=== PATIENT | male | born 1995 | race Caucasian/White ===

== ENCOUNTER 2023-10-28 11:00 | Outpatient (AMB) | payer OTHER, SELFPAY ==
--- NOTE | 2023-10-28 11:16 | MHC.PC.OV ---
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 Allergies No Known Allergies Allergy (Verified 10/28/23 11:25) Medication List - Last Reconciled 10/28/23 by RAUL Al No Known Home Meds Tobacco use date assessed: 10/28/23 HPI HPI Comments History of Present Illness Details 28 y/o M with scoliosis and multiple sports injuries otherwise healthy Surgical history pilonidal cyst 2011 Hospitalizations: choked on peanut age 3 Family hx: Hx of skin cancer and heart disease 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 Unfortunately he does not have any previous medical records that she relocated here about 10 years ago from [place]. He reports he was only seeing a theatre instructor at that time and this practice has since closed. Be that as it may he feels like he is able to provide a good history. He does have 2 complaints today. The 1st is multiple joint pain. 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 Multiple fractures of several bones. Today the biggest complaint is that of left shoulder pain. Reports it feels weak and fatigued when exercising especially when pushing such as bench pressing. Feels a constant cracking and grinding in the subscapular region. Left hip pain. Also feels grinding and popping when his leg is extended and flexed. It hurts all the time. Finally he has an abnormal appearing left foot. He reports that the area has been there for several years. He wonders if some sort of a calcification from playing soccer. Second he complains of a numb sensation at the tip of his penis. Reports that he is able to achieve an erection however during intercourse only he is unable to achieve ejaculation as he does not feel like there is enough stimulation. This is not occur when he masturbates. He does not have any pain. Reports normal urination. No blood or drainage. Reports he has in a monogamous relationship. This has been going on for years. He is never seen a urologist but is interested in in seeing urologist at this time. [facility] Social History (Updated 10/28/23 @ 14:21 by Anne-Marie Sands CMA) Alcohol intake: current Comment: Beer once a week Patient Tobacco Use Status: Never used Tobacco Female Reproductive History Date of last Bone Density Screenin10/28/23 Questionnaire PHQ-9 Over the last 2 weeks, how often have you been bothered by any of the following problems? 1. Little interest or pleasure in doing things: several days 2. Feeling down, depressed, or hopeless: not at all 3. Trouble falling or staying asleep, or sleeping too much: several days 4. Feeling tired or having little energy: several days 5. Poor appetite or overeating: not at all 6. Feeling bad about yourself - or that you are a failure or have let yourself or your family down: several days 7. Trouble concentrating on things, such as reading the newspaper or watching television: not at all 8. Moving or speaking so slowly that other people could have noticed. Or the opposite - being so fidgety or restless that you have been moving around a lot more than usual: not at all 9. Thoughts that you would be better off or of hurting yourself in some way: not at all Total score: 4 Depression Screening Interpretation: Negative Depression Screening Done: Yes 60618 - PHQ-9 Billing: Yes Source: Developed by Drs. Ant Salvador, Savana Yoo, Dmitry Pelletier and colleagues, with an educational elvin from [employer]. Thrive Questionnaire Date Thrive assessed: 10/28/23 I am a: Parent/Caregiver What is your living situation today?: I have a steady place to live Within the past 12 months, did the food you bought not last and you didn't have the money to get more?: Never true Within the past 12 months, did you worry whether your food would run out before you got money to buy more?: Never true Do you have trouble paying for medicines?: No Do you have trouble getting transportation to medical appointments?: No Do you have trouble paying your heating and electricity bill?: No Do you have trouble taking care of your child, family member or friend?: No Do you have trouble with day-to-day activities such as bathing, preparing meals, shopping, managing finances, etc.?: No Are you currently unemployed and looking for a job?: No Are you interested in more education?: No Please select the resources that you would like help with: None THRIVE Score: 0 AUDIT C Alcohol Use Questionnaire (AUDIT-C) 1. How often do you have a drink containing alcohol?: 2-4 times a month 2. How many drinks containing alcohol do you have on a typical day when you are drinking?: 1 or 2 3. How often do you have six or more drinks on one occasion?: Never Total Score: 2 Score Reviewed/Action Taken: Yes KAREY-7 AMB Questionnaire KAREY-7 Date KAREY - 7 assessed: 10/28/23 Feeling nervous, anxious, or on edge: 0 = Not at all Not being able to stop or control worryin = Not at all Worrying too much about different things: 1 = Several days Trouble relaxin = Several days Being so restless that it is hard to sit still: 0 = Not at all Becoming easily annoyed or irritable: 0 = Not at all Feeling afraid as if something awful might happen: 0 = Not at all Total KAREY-7 score (0-4 normal; 5-9 mild; 10-14 moderate; 15-21 severe): 2 Source: Developed by Drs. Ant Salvador, Savana Yoo, Dmitry Pelletier and colleagues, with an educational elvin from [employer]. KAREY-7 Assessment Billing KAREY-7 Assessment Tool: KAREY-7 Assessment 12191 Review of Systems Const Details: Constitutional: Denies fever. Skin: Denies rash. Eye: Denies eye pain. ENMT: Denies sore throat and nasal congestion. Respiratory: Denies shortness of breath and cough. Gastrointestinal: Denies nausea, vomiting or abdominal pain. Cardiovascular: Denies chest pain and syncope. Genitourinary: Denies dysuria. Musculoskeletal: see above Neurologic: Denies headaches, confusion, and weakness. Psychiatric: Denies suicidal thoughts and substance abuse. Allergy/ Immunologic: Denies impaired immunity. Physical exam (Primary Care) Vital Signs: Last Vital Signs Pulse 97 10/28/23 11:22 BP 104/56 L 10/28/23 11:22 Pulse Ox 97 10/28/23 11:22 Oxygen Delivery Method Room Air 10/28/23 11:22 BMI result Body Mass Index 23.4 Tobacco/Smoking Status: Tobacco use Status Tobacco use date assessed 10/28/23 10/28/23 14:21 Patient Tobacco Use Status Never used Tobacco 10/28/23 14:21 PHQ-9: PHQ-9 Score PHQ-9: Total score 4 10/28/23 14:13 Depression Screening Interpretation: Negative Thrive Assessment: Date of Thrive Assessment Date Thrive assessed 10/28/23 10/28/23 11:32 Const Other: General: Well developed, well nourished, in no acute distress. Appears stated age. Head: Normocephalic, atraumatic. Eyes: Pupils are equal, round and reactive to light and accommodation. Conjunctivae are clear. Vision grossly normal. Ears: TMs clear AU, EACS WNL Nose: Patent, without discharge. Mouth: There are no ulcers or lesions noted. No inflammation, no post nasal drip, no plaques nor exudates. Neck: Supple, no adenopathy or thyromegaly. Lungs: Clear to auscultation bilaterally. No rales, rhonchi or wheeze noted. Good air flow in all pop. Heart: Regular rate and rhythm. No murmurs, click, rubs or gallops are noted. Abdomen: Bowel sounds present in all quadrants. The abdomen is soft, nontender, with no masses or organomegaly noted. No hernias are noted. Musculoskeletal: Full range of motion left hip. Positive crepitus and pain with range of motion all directions passive and active. No obvious deformity. No edema or ecchymosis. Full range of motion left shoulder. Cracking in subscapular area with active and passive range of motion. Normal strength. Left foot with a soft spongy growth on the medial aspect proximal to the medial malleolus. Nontender. All extremities are neurovascularly intact Pulses: Peripheral pulses are equal and palpable bilaterally. Extremities: No clubbing, cyanosis nor edema is noted. Neurologic: Gait and station normal. Cranial Nerves 2-12 intact. Motor strength grossly symmetrical and intact. No sensory loss. Balance normal. Skin: No rashes, ulcers, or lesions noted. Turgor is good. Skin color is good. Hair and nails are without abnormalities. Psych: Normal eye contact, affect and mood appropriate, and normal interactions. Patient is alert and appropriate to context. Assessment and Plan Assessment & Plan (1) Routine physicl lab exam: Code(s): Z00.00 - Encounter for general adult medical examination without abnormal findings (2) Laboratory exam ordered as part of routine general medical examination: Code(s): Z00.00 - Encounter for general adult medical examination without abnormal findings (3) Penile abnormality: Code(s): N48.9 - Disorder of penis, unspecified Plan: Refer to urology for further evaluation and treatment (4) Left hip pain: Code(s): M25.552 - Pain in left hip (5) Left shoulder pain: Code(s): M25.512 - Pain in left shoulder Qualifiers: Chronicity: chronic Qualified Code(s): M25.512 - Pain in left shoulder; G89.29 - Other chronic pain (6) Sports injuries: Code(s): T14.90XA - Injury, unspecified, initial encounter Plan: Refer to [facility] for further evaluation and treatment (7) Left foot pain: Code(s): M79.672 - Pain in left foot Orders: Orders TSH reflex Free T4 Today Z00.00 - Encounter for general adult medical examination without abnormal findings Vitamin D 1,25 dihydroxy Today Z00.00 - Encounter for general adult medical examination without abnormal findings Comprehensive Met. Panel Today Z00.00 - Encounter for general adult medical examination without abnormal findings LDL Cholesterol Direct Today Z00.00 - Encounter for general adult medical examination without abnormal findings CT NG by PCR Today Z00.00 - Encounter for general adult medical examination without abnormal findings Referrals Urology Referral N48.9 - Disorder of penis, unspecified Orthopedics Referral M25.512 - Pain in left shoulder, M25.552 - Pain in left hip, T14.90XA - Injury, unspecified, initial encounter Patient Instructions: Health screenings for men ages 40 to 64 You should visit your health care provider regularly, even if you feel healthy. The purpose of these visits is to: Screen for medical issues Assess your risk for future medical problems Encourage a healthy lifestyle Update vaccinations and other preventive care services Help you get to know your provider in case of an illness Information Even if you feel fine, you should still see your provider for regular checkups. These visits can help you avoid problems in the future. For example, the only way to find out if you have high blood pressure is to have it checked regularly. High blood sugar and high cholesterol level also may not have any symptoms in the early stages. Simple blood tests can check for these conditions. There are specific times when you should see your provider or receive specific health screenings. The [place] Preventive Services Task Force publishes a list of recommended screenings. Below are screening guidelines for men ages 40 to 64. BLOOD PRESSURE SCREENING Have your blood pressure checked at least once every year. Watch for blood pressure screenings in your area. Ask your provider if you can stop in to have your blood pressure checked. Ask your provider if you need your blood pressure checked more often if: You have diabetes, heart disease, kidney problems, or are overweight or have certain other health conditions You have a first-degree relative with high blood pressure You are Black Your blood pressure top number is from 120 to 129 mm Hg, or the bottom number is from 70 to 79 mm Hg If the top number is 130 mm Hg or greater or the bottom number is 80 mm Hg or greater, this is considered stage 1 hypertension. Schedule an appointment with your provider to learn how you can lower your blood pressure. Effects of age on blood pressure CHOLESTEROL SCREENING Cholesterol screening should begin at age 35 for men with no known risk factors for coronary heart disease. Repeat cholesterol screening should take place: Every 5 years for men with normal cholesterol levels More often if changes occur in lifestyle (including weight gain and diet) More often if you have diabetes, heart disease, kidney problems, or certain other conditions COLORECTAL CANCER SCREENING If you are under age 45, talk to your provider about getting screened. You may need to be screened if you have a strong family history of colon cancer or polyps. Screening may also be considered if you have risk factors such as a history of inflammatory bowel disease or polyps. If you are age 45 to 75, you should be screened for colorectal cancer. There are several screening tests available: A stool-based fecal occult blood (gFOBT) or fecal immunochemical test (FIT) every year A stool sDNA test every 1 to 3 years Flexible sigmoidoscopy every 5 years or every 10 years with stool testing FIT done every year CT colonography (virtual colonoscopy) every 5 years Colonoscopy every 10 years You may need a colonoscopy more often if you have risk factors for colorectal cancer, such as: Ulcerative colitis A personal or family history of colorectal cancer A history of growths in your colon called adenomatous polyps DENTAL EXAM Go to the dentist once or twice every year for an exam and cleaning. Your dentist will evaluate if you have a need for more frequent visits. DIABETES SCREENING All adults who do not have risk factors for diabetes should be screened starting at age 35 and repeated every 3 years. If you have other risk factors for diabetes, such as a first degree relative with diabetes, overweight or obesity, high blood pressure, prediabetes, or a history of heart disease, you may be tested more often. If you are overweight and have other risk factors, such as high blood pressure and are planning to become , screening is recommended. EYE EXAM Have an eye exam every 2 to 4 years ages 40 to 54 and every 1 to 3 years ages 55 to 64. Your provider may recommend more frequent eye exams if you have vision problems or glaucoma risk. Have an eye exam that includes an examination of your retina (back of your eye) at least every year if you have diabetes. IMMUNIZATIONS Commonly needed vaccines include: Flu shot: get one every year COVID-19 vaccine: ask your provider what is best for you Tetanus-diphtheria and acellular pertussis (Tdap) vaccine: have as one of your tetanus-diphtheria vaccines if you did not receive it as an adolescent Tetanus-diphtheria: have a booster (or Tdap) every 10 years Varicella vaccine: receive 2 doses if you never had chickenpox or the varicella vaccine and were born in 1979 or after Hepatitis B vaccine: receive 2, 3, or 4 doses, depending on your exact circumstances, if you did not receive these as a child or adolescent, until age 59 Shingles (herpes zoster) vaccine: at or after age 50 Ask your provider if you should receive other immunizations, especially if you have certain medical conditions, such as diabetes or are at increased risk for some diseases such as pneumonia. INFECTIOUS DISEASE SCREENING Screening for hepatitis C: all adults ages 18 to 79 should get a one-time test for hepatitis C. Screening for human immunodeficiency virus (HIV): all people ages 15 to 65 should get a one-time test for HIV. Depending on your lifestyle and medical history, you may need to be screened for infections such as syphilis, chlamydia, and other infections. LUNG CANCER SCREENING You should have an annual screening for lung cancer with low-dose computed tomography (LDCT) if: You are age 50 to 80 years AND You have a 20 pack-year smoking history AND You currently smoke or have quit within the past 15 years OSTEOPOROSIS SCREENING If you are age 50 to 64 and have risk factors for osteoporosis, you should discuss screening with your provider. Risk factors can include long-term steroid use, low body weight, smoking, heavy alcohol use, having a fracture after age 50, or a family history of hip fracture or osteoporosis. Osteoporosis PHYSICAL EXAM All adults should visit their provider from time to time, even if they are healthy. The purpose of these visits is to: Screen for diseases Assess risk of future medical problems Encourage a healthy lifestyle Update vaccinations and other preventive care services Maintain a relationship with a provider in case of an illness Your height, weight, and body mass index (BMI) should be checked at every exam. During your exam, your provider may ask you about: Depression and anxiety Diet and exercise Alcohol and tobacco use Safety, such as use of seat belts and smoke detectors Your medicines and risk for interactions PROSTATE CANCER SCREENING If you're 55 through 69 years old, before having the test, talk to your provider about the pros and cons of having a PSA test. Ask about: Whether screening decreases your chance of dying from prostate cancer. Whether there is any harm from prostate cancer screening, such as side effects from testing or overtreatment of cancer when discovered. Whether you have a higher risk of prostate cancer than others. If you are age 55 or younger, screening is not generally recommended. You should talk with your provider about if you have a higher risk for prostate cancer. Risk factors include: Having a family history of prostate cancer (especially a brother or father) Being If you choose to be tested, the PSA blood test is repeated over time (yearly or less often), though the best frequency is not known. Prostate examinations are no longer routinely done on men with no symptoms. Prostate cancer SKIN EXAM Your provider may check your skin for signs of skin cancer, especially if you're at high risk. People at high risk include those who have had skin cancer before, have close relatives with skin cancer, or have a weakened immune system. TESTICULAR EXAM The [place] Preventive Services Task Force (USPSTF) now recommends against performing testicular self-exams. Doing testicular self-exams has been shown to have little to no benefit. Coding Level of Care Code New Pt Prev Care 18-39yr(67762 Diagnoses Routine physicl lab exam Z00.00 Laboratory exam ordered as part of routine general medical examination Z00.00 Penile abnormality N48.9 Left hip pain M25.552 Chronic left shoulder pain M25.512; G89.29 Chronicity: chronic Sports injuries T14.90XA Left foot pain M79.672 Additional Codes KAREY-7 Assessment Billing - KAREY-7 Assessment Tool: KAREY-7 Assessment 77625 ([id number])
[2023-10-28 11:22] VITALS: BP 104/56; PULSE 97; O2SAT 97; BMI 23.4
== END 2023-10-28 12:07 | disposition home or self-care (01) ==
PROVIDERS: PCP Nurse Practitioner Family; Visit Provider Nurse Practitioner Family
DX: Z00.00 Encounter for general adult medical examination without abnormal findings (principal); N48.9 Disorder of penis, unspecified; M25.552 Pain in left hip; M25.512 Pain in left shoulder; G89.29 Other chronic pain; T14.90XA Injury, unspecified, initial encounter; M79.672 Pain in left foot
CPT/HCPCS: 99385

== ENCOUNTER 2023-10-28 12:01 | Outpatient (REF) | payer OTHER, SELFPAY ==
[2023-10-28 15:38] LABS: Alanine Aminotransferase 155 U/L (0-40); Albumin Level 4.3 g/dL (3.5-5.0); Alkaline Phosphatase 126 U/L (39-117); Anion Gap 12 (12-20); Aspartate Amino Transferase 42 U/L (5-37); Bilirubin Total 0.7 mg/dL (0.0-1.0); Blood Urea Nitrogen 18 mg/dL (9-16); Calcium 9.7 mg/dL (8.4-10.2); Carbon Dioxide 29 mmol/L (22-29); Chloride 105 mmol/L (96-108); Estimated Glomerular Filt Rate > 60; Glucose Random 77 mg/dL (60-115); Potassium 4.3 mmol/L (3.3-5.1); Sodium 142 mmol/L (135-145); Total Protein 7.7 g/dL (6.5-8.0)
[2023-10-28 15:45] LABS: TSH reflex Free T4 1.13 uIU/mL (0.32-4.0)
[2023-10-29 08:39] LABS: LDL Cholesterol Direct 122 mg/dL (<100)
[2023-11-01 17:24] LABS: VITAMIN D (1,25 OH) D3 43 pg/mL; Vit D (1,25-Dihydroxy) Total 43 pg/mL (18-72); Vitamin D (1,25 OH) D2 <8 pg/mL
== END 2023-10-28 12:02 | disposition home or self-care (01) ==
LOC: HO.WFDLDS 12:01
PROVIDERS: Visit Provider Nurse Practitioner Family
DX: Z00.00 Encounter for general adult medical examination without abnormal findings (principal)
CPT/HCPCS: 36415; 80053; 82652; 83721; 84443

== ENCOUNTER 2023-11-15 12:30 | Outpatient (REF) | payer OTHER, SELFPAY ==
--- NOTE | ~2023-11-15 | XR_ITS ---
EXAMINATION: XR HIP, LEFT CLINICAL INFORMATION: Pain COMPARISON: None available. TECHNIQUE: Two views of the left hip. PA view of the pelvis. FINDINGS: No fracture. Alignment is anatomic. Hip joint space is maintained. Soft tissues are unremarkable. XR/XR hip LT min 2V IMPRESSION: Normal left hip.
== END 2023-11-15 12:31 | disposition home or self-care (01) ==
LOC: HO.HOSX 12:30
PROVIDERS: Visit Provider Physician Assistant
DX: S73.002A Unspecified subluxation of left hip, initial encounter (principal)
CPT/HCPCS: 73502

== ENCOUNTER 2023-11-15 14:56 | Outpatient (AMB) | payer OTHER, SELFPAY ==
--- NOTE | 2023-11-15 14:57 | A.OFFVIS_ITS ---
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 Patient states his pain has been going on for about 2 years ago and is a 2 on the 1 or 10 pain scale. 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 He reports he has pain, grinding and popping in his left hip which is more prominant with hyperextension of the hip. He plays soccer and hockey and lives an active lifestyle. He has worked with Athletic trainers in the past which have helped some. He also c/o right knee and left scapula pain. [facility] Surgical History History of removal of cyst Family History Father Hypertension Maternal Grandfather Hypertension Paternal Grandfather Hypertension Social History Household Members: Family Housing: House Are you a primary healthcare science specialist to a significant other at home: No Do you presently have visiting nurse or other home services: No 75 years or older and lives alone: No Alcohol intake: current Comment: Beer once a week Patient Tobacco Use Status: Never used Tobacco e-Cigarette/Vaping Use: Never Used service: No Current occupational status: other Sexual orientation: Unable to collect Gender identity: Unable to collect Cognitive needs: No Hearing needs: No Vision needs: No Review of Systems Const All systems reviewed & are unremarkable except as noted in HPI and below Physical Exam Vital Signs: BMI result Body Mass Index 23.3 Const General: cooperative, healthy appearing, comfortable, no acute distress, well developed and alert Orientation/consciousness: patient oriented x3 HEENT Head: Yes normal to inspection, Yes normocephalic and Yes atraumatic Eyes General: appearance normal, both eyes and all related structures Resp Effort & Inspection: normal respiratory effort and able to speak in complete sentences Cardio Rate: regular rate Peripheral pulses: Peripheral pulses 2+ throughout GI Palpation (GI): Soft to palpation Skin Lesions: no lesions Rashes: no rashes Neuro General: patient oriented x3 Extrem Other: Left hip: Normal to inspection. Pain with active extension of hip with an audible clunk. Limited internal and external rotation of the left hip when compared to the contralateral side. NVI. Right knee skin intact, no erythema or joint effusion. No tenderness along the medial or lateral joint line. ROM full with crepitus. Negative steinmans. No ligamentous laxity. NVI. Left shoulder is normal to inspection. Full ROM in all planes. No scapular winging. He has mild tenderness along the spine of the scapula. Results Reviewed Results Reviewed: Xrays were obtained in the office today and personally reviewed by me of the left hip are negative for acute or chronic abnormalities. Assessment & Plan Assessment & Plan (1) Left hip subluxation: Code(s): S73.002A - Unspecified subluxation of left hip, initial encounter Plan An MRI with contrast was ordered to further evaluate the soft tissues of the hip. I did review some exercises he could work on for ROM of hip and gave him an order for physical therapy which he declined as he states he works in [facility] and knows a development trainer who could help him work on the exercises. He will see me back once the scan is complete. Orders: Orders MR hip LT w con Today S73.002A - Unspecified subluxation of left hip, initial encounter Patient Instructions: Scribed for Solis Hector PA-C, by Isaias Gordon medical resident, on 11/15/2023 at 3:15 PM EST. Solis Suazo PA-C, have personally reviewed and agree with the information entered by the scribe. Coding Level of Care Code New Pt Level 3 (91045) Diagnoses Left hip subluxation S73.002A
[2023-11-15 14:58] VITALS: BMI 23.3
== END 2023-11-15 15:41 | disposition home or self-care (01) ==
PROVIDERS: PCP Nurse Practitioner Family; Visit Provider Physician Assistant
DX: S73.002A Unspecified subluxation of left hip, initial encounter (principal)
CPT/HCPCS: 99203

== ENCOUNTER 2023-11-15 16:07 | Outpatient (AMB) | payer OTHER, SELFPAY ==
--- NOTE | 2023-11-15 16:02 | MHC.PC.OV ---
Intake Visit Reasons: lab results [id number] Intake Note: Patient is ready for lab results. Family Resource Coordinator Required: No Accompanied by: Self / Same As Patient Allergies No Known Allergies Allergy (Verified 11/15/23 16:05) Medication List - [facility] No Known Home Meds Tobacco use date assessed: 10/28/23 HPI HPI Comments History of Present Illness Details Telehealth visit to follow up on lab results. Labs from 11/01/2023 show normal electrolytes, normal BUN creatinine, elevated LFTs AST 42, ALT 155, alk-phos 126 and, elevated direct LDL 122, normal thyroid, normal vitamin-D Drinks 1-2 beers per week; did not drink for 6-7 months, then restarted Aug 2023. Reports not taking supplements. Not taking anything OTC to include APAP He denies any abdominal pain. [facility] History History of removal of cyst Family History Father Hypertension Maternal Grandfather Hypertension Paternal Grandfather Hypertension Social History Household Members: Family Housing: House Are you a primary care tech to a significant other at home: No Do you presently have visiting nurse or other home services: No 75 years or older and lives alone: No Alcohol intake: current Comment: Beer once a week Patient Tobacco Use Status: Never used Tobacco e-Cigarette/Vaping Use: Never Used service: No Current occupational status: other Sexual orientation: Unable to collect Gender identity: Unable to collect Cognitive needs: No Hearing needs: No Vision needs: No Questionnaire Thrive Questionnaire Date Thrive assessed: 10/28/23 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 Ant Salvador, Savana Yoo, Dmitry Pelletier and colleagues, with an educational elvin from [employer]. Physical exam (Primary Care) Tobacco/Smoking Status: Tobacco use Status Tobacco use date assessed 10/28/23 10/28/23 14:21 Patient Tobacco Use Status Never used Tobacco 10/29/23 10:08 e-Cigarette/Vaping Use Never Used 10/29/23 10:08 Thrive Assessment: Date of Thrive Assessment Date Thrive assessed 10/28/23 10/28/23 11:32 Telehealth Telehealth Location of provider rendering services: practice address Location of patient: address on file Patient Identification confirmed using: Name, : Yes Telehealth method: voice only Patient verbally consented to treatment: Yes Patient verbally consented to billing insurance company: Yes Patient informed of any privacy concerns related to visit: Yes Minutes spent on Phone/Video with Pt.: 8 Assessment and Plan Assessment & Plan (1) Elevated LFTs: Comment: 11/01/23 elevated LFTs AST 42, ALT 155, alk-phos 126 11/15/2023: Additional labs ordered along with ultrasound. Advised patient to schedule a follow up visit with me in 2-3 weeks after this testing is complete to discuss the results. Code(s): - Other specified abnormal findings of blood chemistry Orders: Orders Alpha 1 Anti-trypsin Today - Other specified abnormal findings of blood chemistry Ceruloplasmin Today - Other specified abnormal findings of blood chemistry Gamma Glutamyl Transpeptidase Today - Other specified abnormal findings of blood chemistry IRON PROFILE Today - Other specified abnormal findings of blood chemistry Hepatitis A,B,C Profile Today - Other specified abnormal findings of blood chemistry US abdomen milian w elastography Today - Other specified abnormal findings of blood chemistry Liver Panel Today - Other specified abnormal findings of blood chemistry Ferritin Today - Other specified abnormal findings of blood chemistry Monotest Today - Other specified abnormal findings of blood chemistry Smooth Muscle Antibody Today - Other specified abnormal findings of blood chemistry Coding Level of Care Code Tele Est Pt Level 1 (38087) Diagnoses Elevated LFTs
== END 2023-11-15 16:28 | disposition home or self-care (01) ==
LOC: HO.HMGFM 16:07
PROVIDERS: PCP Nurse Practitioner Family; Visit Provider Nurse Practitioner Family
DX: R79.89 Other specified abnormal findings of blood chemistry (principal)
CPT/HCPCS: 99211

== ENCOUNTER 2023-12-23 08:51 | Outpatient (REF) | payer OTHER, SELFPAY ==
--- NOTE | ~2023-12-23 | US_ITS ---
EXAMINATION: US ABDOMEN LIMITED WITH LIVER ELASTOGRAPHY CLINICAL INFORMATION: Abnormal findings of blood chemistry. COMPARISON: None available. TECHNIQUE: Real-time imaging of the abdominal viscera. Noninvasive ultrasound liver fibrosis assessment is performed using Claudine ElastPQ point quantification shear wave elastography (2D-SWE) with a C5-2 MHz transducer. Multiple elastography samples are obtained. FINDINGS: PANCREAS: Normal. The visualized pancreatic head and body are normal in appearance. The remainder of the pancreas is obscured from visualization by the overlying bowel gas. LIVER: Normal. The liver demonstrates normal size, contour and echogenicity. No focal lesion or intrahepatic biliary duct dilatation. The right lobe measures 15.5 cm in length. The left lobe measures 10.8 cm in length. Portal flow is towards the liver (hepatopetal). Shear wave liver elastography median stiffness is 1.74 m/s (reference: normal median stiffness is 1.3 m/s or less). IQR/median stiffness to assess sampling precision is 0.06 (reference: good quality data set is IQR/median stiffness of 0.15 or less). GALLBLADDER: Normal. The gallbladder is physiologically distended without evidence of stones, sludge, polyps, wall thickening or pericholecystic fluid. COMMON BILE DUCT: Normal in caliber measuring 0.2 cm in diameter. RIGHT KIDNEY: Normal. No hydronephrosis. No renal calculi or focal parenchymal lesions. The kidney measures 10.4 cm in maximum dimension. FREE FLUID: None. US/US abdomen milian w elastography IMPRESSION: Liver elastography: Measurements are suggestive of compensated advanced chronic liver disease but need further test for confirmation. REFERENCE: Society of Radiologists in Ultrasound Liver Stiffness Thresholds (2020): LIVER STIFFNESS THRESHOLDS: *Liver Stiffness equal or less than 1.3 m/s: High probability of being normal. *Liver Stiffness less than 1.7 m/s: In the absence of other known clinical signs, rules out compensated advanced chronic liver disease. *Liver Stiffness 1.7-2.1 m/s: Suggestive of compensated advanced chronic liver disease but need further test for confirmation. *Liver Stiffness over 2.1 m/s: Rules in compensated advanced chronic liver disease. *Liver Stiffness over 2.4 m/s: Suggestive of clinically significant portal hypertension. QUALITY OF DATA SET: *IQR/Median value equal or less than 0.15 implies a quality data set. *IQR/Median value over 0.15 implies a poor quality data set. SIGNIFICANT CHANGE FROM PRIOR EXAM: Significant change if liver stiffness measurement is 10% or greater from prior exam. OTHER CONSIDERATIONS: The stage of liver fibrosis may be overestimated in the setting of acute hepatitis, liver inflammation, elevated liver function tests, hepatic vascular congestion, obstructive cholestasis, non-fasting state, and infiltrative diseases such as amyloidosis and lymphoma. In some patients with NAFLD, the liver stiffness thresholds for compensated advanced chronic liver disease may be lower. In causes other than viral hepatitis and NAFLD, liver stiffness thresholds are not well established.
[2023-12-23 10:27] LABS: Alanine Aminotransferase 46 U/L (0-40); Albumin Level 4.5 g/dL (3.5-5.0); Alkaline Phosphatase 79 U/L (39-117); Aspartate Amino Transferase 22 U/L (5-37); Bilirubin Direct 0.2 mg/dL (0.0-0.5); Bilirubin Total 0.6 mg/dL (0.0-1.0); Gamma Glutamyl Transpeptidase 53 U/L (11-51); Iron 111 mcg/dL (45-160); Percent Iron Saturation 39 % (15-50); Total Iron Binding Capacity 287 mcg/dL (228-428); Unsaturated Iron Binding 176 ug/dL
[2023-12-23 10:40] LABS: HBc Num1 0.13 S/CO (0.00-0.79); HBsAGNum1 0.27 S/CO (0.00-0.99); Hepatitis A Antibody IgM 0.31 Index (0-0.79); Hepatitis B Core Antibody Nonreactive (Nonreactive); Hepatitis B Surface Antigen Negative (Negative); ~HepC Num1 0.11 S/CO (0.00-0.79); ~Hepatitis A Antibody IgM Nonreactive (Nonreactive); ~Hepatitis B Surface Antibody NONREACTIVE (Nonreactive); ~Hepatitis C Antibody Nonreactive (Nonreactive)
[2023-12-23 10:43] LABS: Ferritin 157 ng/mL (20-250)
[2023-12-23 11:13] LABS: Monotest Positive (Negative)
[2023-12-24 14:28] LABS: Alpha 1 Anti-trypsin 159 mg/dL (83-199); Ceruloplasmin 22 mg/dL (14-30)
[2023-12-29 18:13] LABS: Smooth Muscle Antibody <20 U (<20)
== END 2023-12-23 08:52 | disposition home or self-care (01) ==
LOC: HO.US 08:51
PROVIDERS: PCP Nurse Practitioner Family; Visit Provider Nurse Practitioner Family
DX: R79.89 Other specified abnormal findings of blood chemistry (principal)
CPT/HCPCS: 36415; 76705; 76981; 80076; 82103; 82390; 82728; 82977; 83540; 86015; 86308; 86704; 86706; 86709; 86803; 87340

== ENCOUNTER 2024-01-17 16:37 | Outpatient (AMB) | payer OTHER, SELFPAY ==
--- NOTE | 2024-01-17 16:21 | MHC.PC.OV ---
Intake Visit Reasons: Discuss ultrasound and lab work Allergies No Known Allergies Allergy (Verified 11/15/23 16:05) Medication List - Last Re[facility]iled 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 Since last visit had repeat labs done which show improvement in his LFTS and + mono Pt denies any sx related to mono now or in the past He feels great Denies any GI sx. 01/2024 Liver elastography Liver elastography: Measurements are suggestive of compensated advanced chronic liver disease but need further test for confirmation. otherwise normal kidneys and pancreas Labs from 12/23/2023 show normal iron profile, elevated GGT 53, repeat AST improved now 22 (was 42), improved ALT is now 46 (was 155), normal alk phos 79 (was 126, protein and albumin remain normal alpha 1 anti trypsin is normal, ceruloplasmin normal, anti smooth muscle antibody normal negative hepatitis profile, positive mono screen Discussed treatment options of watch, wait and repeat VS send to GI Given that he has no sx and feels great, will repeat labs and imaging in 3 months orders were placed today if he develops any GI sx he should f/u sooner [facility] Surgical History History of removal of cyst Family History Father Hypertension Maternal Grandfather Hypertension Paternal Grandfather Hypertension Social History Household Members: Family Housing: House Are you a primary career consultant to a significant other at home: No Do you presently have visiting nurse or other home services: No 75 years or older and lives alone: No Alcohol intake: current Comment: Beer once a week Patient Tobacco Use Status: Never used Tobacco e-Cigarette/Vaping Use: Never Used service: No Current occupational status: other Sexual orientation: Unable to collect Gender identity: Unable to collect Cognitive needs: No Hearing needs: No Vision needs: No Questionnaire Thrive Questionnaire Date Thrive assessed: 10/28/23 KAREY-7 AMB Questionnaire KAREY-7 Date KAREY - 7 assessed: 10/28/23 Source: Developed by Drs. Ant Salvador, Savana Yoo, Dmitry Pelletier and colleagues, with an educational elvin from [employer]. Physical exam (Primary Care) Tobacco/Smoking Status: Tobacco use Status Tobacco use date assessed 10/28/23 11/15/23 16:05 Patient Tobacco Use Status Never used Tobacco 11/15/23 16:05 e-Cigarette/Vaping Use Never Used 11/15/23 16:05 Thrive Assessment: Date of Thrive Assessment Date Thrive assessed 10/28/23 11/15/23 16:05 Telehealth Telehealth Telehealth Platform: Telephone Location of provider rendering services: practice address Location of patient: address on file Patient Identification confirmed using: Name, : Yes Telehealth method: voice only Patient verbally consented to treatment: Yes Patient verbally consented to billing insurance company: Yes Patient informed of any privacy concerns related to visit: Yes Minutes spent on Phone/Video with Pt.: 11 Assessment and Plan Assessment & Plan (1) Monospot test positive: Code(s): B27.90 - Infectious mononucleosis, unspecified without complication (2) Elevated LFTs: Code(s): R79.89 - Other specified abnormal findings of blood chemistry Orders: Orders Liver Fibrosis Pnl 04/03/24 B27.90 - Infectious mononucleosis, unspecified without complication, R79.89 - Other specified abnormal findings of blood chemistry Liver Panel 04/03/24 B27.90 - Infectious mononucleosis, unspecified without complication, R79.89 - Other specified abnormal findings of blood chemistry Monotest 04/03/24 B27.90 - Infectious mononucleosis, unspecified without complication, R79.89 - Other specified abnormal findings of blood chemistry US abdomen milian w elastography 04/03/24 B27.90 - Infectious mononucleosis, unspecified without complication, R79.89 - Other specified abnormal findings of blood chemistry Patient Instructions: RTO 04/2024 TO REVIEW RESULTS SOONER NEEDED Coding Level of Care Code Tele Est Pt Level 3 (00484) Diagnoses Monospot test positive B27.90 Elevated LFTs R79.89
== END 2024-01-17 16:38 | disposition home or self-care (01) ==
LOC: HO.HMGFM 16:37
PROVIDERS: PCP Nurse Practitioner Family; Visit Provider Nurse Practitioner Family
DX: B27.90 Infectious mononucleosis, unspecified without complication (principal); R79.89 Other specified abnormal findings of blood chemistry
CPT/HCPCS: 99213

== ENCOUNTER 2024-04-07 08:23 | Outpatient (REF) | payer OTHER, SELFPAY ==
--- NOTE | ~2024-04-07 | US_ITS ---
EXAMINATION: US COMPLETE ABDOMEN WITH LIVER ELASTOGRAPHY CLINICAL INFORMATION: Infectious mononucleosis. COMPARISON: Ultrasound abdomen with elastoplasty 12/23/2023 TECHNIQUE: Real-time imaging of the abdominal viscera. Noninvasive ultrasound liver fibrosis assessment is performed using Claudine ElastPQ point quantification shear wave elastography (pSWE) with a C5-2 MHz transducer. Multiple elastography samples are obtained. FINDINGS: PANCREAS: Normal. The visualized pancreatic head and body are normal in appearance. The remainder of the pancreas is obscured from visualization by the overlying bowel gas. ABDOMINAL AORTA: The proximal, middle, and distal aortic segments are normal in caliber. INFERIOR VENA CAVA: Visualized portions are normal. LIVER: The liver demonstrates borderline increased echogenicity with normal size, contour. No focal lesion or intrahepatic biliary duct dilatation. The right lobe measures 14.2 cm in length. The left lobe measures 8.3 cm in length. Portal flow is towards the liver (hepatopetal). Shear wave liver elastography median stiffness is 1.40 m/s (reference: normal median stiffness is 1.3 m/s or less). IQR/median stiffness to assess sampling precision is 0.07 (reference: good quality data set is IQR/median stiffness of 0.15 or less). GALLBLADDER: Normal. The gallbladder is physiologically distended without evidence of stones, sludge, polyps, wall thickening or pericholecystic fluid. COMMON BILE DUCT: Normal in caliber measuring 0.2 cm in diameter. RIGHT KIDNEY: Normal. No hydronephrosis. No renal calculi or focal parenchymal lesions. The kidney measures 10.7 cm in maximum dimension. LEFT KIDNEY: Normal. No hydronephrosis. No renal calculi or focal parenchymal lesions. The kidney measures 11.2 cm in maximum dimension. SPLEEN: Normal. The spleen measures 11.2 cm in maximum dimension. FREE FLUID: None. US/US abdomen comp w elastography IMPRESSION: 1. Borderline increased liver echogenicity. No hepatomegaly or splenomegaly. 2. Liver elastography: In the absence of other known clinical signs, measurements rule out compensated advanced chronic liver disease. If there are known clinical signs, further testing may be needed for confirmation. Liver stiffness measurement is without significant change from prior exam (change under 10%). REFERENCE: Society of Radiologists in Ultrasound Liver Stiffness Thresholds (2020): LIVER STIFFNESS THRESHOLDS: *Liver Stiffness equal or less than 1.3 m/s: High probability of being normal. *Liver Stiffness less than 1.7 m/s: In the absence of other known clinical signs, rules out compensated advanced chronic liver disease. *Liver Stiffness 1.7-2.1 m/s: Suggestive of compensated advanced chronic liver disease but need further test for confirmation. *Liver Stiffness over 2.1 m/s: Rules in compensated advanced chronic liver disease. *Liver Stiffness over 2.4 m/s: Suggestive of clinically significant portal hypertension. QUALITY OF DATA SET: *IQR/Median value equal or less than 0.15 implies a quality data set. *IQR/Median value over 0.15 implies a poor quality data set. SIGNIFICANT CHANGE FROM PRIOR EXAM: Significant change if liver stiffness measurement is 10% or greater from prior exam. OTHER CONSIDERATIONS: The stage of liver fibrosis may be overestimated in the setting of acute hepatitis, liver inflammation, elevated liver function tests, hepatic vascular congestion, obstructive cholestasis, non-fasting state, and infiltrative diseases such as amyloidosis and lymphoma. In some patients with NAFLD, the liver stiffness thresholds for compensated advanced chronic liver disease may be lower. In causes other than viral hepatitis and NAFLD, liver stiffness thresholds are not well established. Electronically signed by: Lalo Shoemaker MD 04/10/2024 09:55 PM EDT
[2024-04-07 12:03] LABS: Monotest Positive (Negative)
[2024-04-07 12:27] LABS: Alanine Aminotransferase 37 U/L (0-40); Albumin Level 4.9 g/dL (3.5-5.0); Alkaline Phosphatase 75 U/L (39-117); Aspartate Amino Transferase 30 U/L (5-37); Bilirubin Direct 0.3 mg/dL (0.0-0.5); Bilirubin Total 1.1 mg/dL (0.0-1.0); Total Protein 8.3 g/dL (6.5-8.0)
[2024-04-15 17:24] LABS: FIB-ALT 31 U/L (9-46); FIB-Alpha-2-Macroglobulin 171 mg/dL (106-279); FIB-Apolipoprotein A1 133 mg/dL (94-176); FIB-GGT 36 U/L (3-70); FIB-Haptoglobin 126 mg/dL (43-212); FIB-Total Bilirubin 0.8 mg/dL (0.2-1.2); Liver Fibrosis Score 0.18; Liver Fibrosis Stage F0; Nec Inflam Act Grade A0; Nec Inflam Act Score 0.13
== END 2024-04-07 08:24 | disposition home or self-care (01) ==
LOC: HO.US 08:23
PROVIDERS: PCP Nurse Practitioner Family; Visit Provider Nurse Practitioner Family
DX: B27.90 Infectious mononucleosis, unspecified without complication (principal); R79.89 Other specified abnormal findings of blood chemistry
CPT/HCPCS: 36415; 76700; 76981; 80076; 81596; 86308

== ENCOUNTER 2024-04-27 16:38 | Outpatient (AMB) | payer OTHER, SELFPAY ==
--- NOTE | 2024-04-27 16:32 | A.OFFPC_ITS ---
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 otherwise normal kidneys and pancreasLabs from 12/23/2023 show normal iron profile, elevated GGT 53, repeat AST improved now 22 (was 42), improved ALT is now 46 (was 155), normal alk phos 79 (was 126, protein and albumin remain normal alpha 1 anti trypsin is normal, ceruloplasmin normal, anti smooth muscle antibody normal negative hepatitis profile, positive mono screen Labs from 04/07/2024 show elevated total bilirubin of 1.1, normal direct bilirubin, normal LFTs, normal GGT, normal liver fibrosis panel, mild elevation total protein 8.3, normal albumin positive mono screen (may persist for 6-12 months) repeat liver US showed: 1. Borderline increased liver echogenici ty. No hepatomegaly or splenomegaly. Telelealth visit today to which was a workup to eval incidental elevations enzymes. Luckily all of his findings have improved. He was made aware that the mono screen can persist for up to 6-12 months. He is not having any GI symptoms. He has only drank 1 time since October. He has cut out red meat. Continues to exercise. Discuss with him today that he is not immune to hepatitis-B and recommend him getting the vaccine series. He will get this done of the pharmacy. Also discuss getting 1 booster and rechecking antibodies however he wishes to proceed with a 3 vaccinations. That is fine. In regards to alcohol, I told him I have to be afraid rather be aware. Continue dietary modification. No need to repeat screen for mono. If he develops any GI symptoms or any changes in his health, I recommend that he follow up. Otherwise okay to see me in October for a physical. This note is constructed using voice recognition software. While every effort has been made to ensure accuracy in stripper printed circuit boards, still errors may have been included Sometimes, these errors may affect the content or meaning of the given sentence . Total time spent caring for the patient today was 25 minutes. This includes time spent before the visit reviewing the chart, time spent during the visit, and time spent after the visit on documentation [facility] History History of removal of cyst Family History Father Hypertension Maternal Grandfather Hypertension Paternal Grandfather Hypertension Social History Household Members: Family Housing: House Are you a primary career law clerk to a significant other at home: No Do you presently have visiting nurse or other home services: No 75 years or older and lives alone: No Alcohol intake: current Comment: Beer once a week Patient Tobacco Use Status: Never used Tobacco e-Cigarette/Vaping Use: Never Used service: No Current occupational status: other Sexual orientation: Unable to collect Gender identity: Unable to collect Cognitive needs: No Hearing needs: No Vision needs: No Questionnaire Thrive Questionnaire Date Thrive assessed: 10/28/23 KAREY-7 AMB Questionnaire KAREY-7 Date KAREY - 7 assessed: 10/28/23 Source: Developed by Drs. Ant Salvador, Savana Yoo, Dmitry Pelletier and colleagues, with an educational elvin from [employer]. Physical exam (Primary Care) Tobacco/Smoking Status: Tobacco use Status Tobacco use date assessed 10/28/23 01/17/24 16:22 Patient Tobacco Use Status Never used Tobacco 01/17/24 16:22 e-Cigarette/Vaping Use Never Used 01/17/24 16:22 Thrive Assessment: Date of Thrive Assessment Date Thrive assessed 10/28/23 01/17/24 16:22 Telehealth Telehealth Telehealth Platform: Telephone Location of provider rendering services: practice address Location of patient: address on file Patient Identification confirmed using: Name, : Yes Telehealth method: voice only Patient verbally consented to treatment: Yes Patient informed of any privacy concerns related to visit: Yes Minutes spent on Phone/Video with Pt.: 16 Assessment and Plan Assessment & Plan (1) NAFLD (nonalcoholic fatty liver disease): Code(s): K76.0 - Fatty (change of) liver, not elsewhere classified (2) Elevated LFTs: Code(s): R79.89 - Other specified abnormal findings of blood chemistry (3) Monospot test positive: Code(s): B27.90 - Infectious mononucleosis, unspecified without complication Coding Level of Care Code Tele Est Pt Level 2 (96265) Complex EM visit Add On G2211 Diagnoses NAFLD (nonalcoholic fatty liver disease) K76.0 Elevated LFTs R79.89 Monospot test positive B27.90
== END 2024-04-27 16:54 | disposition home or self-care (01) ==
LOC: HO.HMCFM 16:38
PROVIDERS: PCP Nurse Practitioner Family; Visit Provider Nurse Practitioner Family
DX: K76.0 Fatty (change of) liver, not elsewhere classified (principal); R79.89 Other specified abnormal findings of blood chemistry; B27.90 Infectious mononucleosis, unspecified without complication

== ENCOUNTER → 2024-04-27 16:38 | Outpatient (BNVA) | payer OTHER, SELFPAY | PROVIDERS: PCP Nurse Practitioner Family; Visit Provider Nurse Practitioner Family | DX: K76.0 Fatty (change of) liver, not elsewhere classified (principal); R79.89 Other specified abnormal findings of blood chemistry; B27.90 Infectious mononucleosis, unspecified without complication ==

== ENCOUNTER 2024-10-30 07:59 | Outpatient (AMB) | payer OTHER, SELFPAY ==
--- NOTE | 2024-10-30 08:02 | MHC.PC.OV ---
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 Allergies No Known Allergies Allergy (Verified 10/30/24 08:11) Medication List - Last Reconciled 10/30/24 by RAULITO Al- No Known Home Meds Tobacco use date assessed: 10/30/24 Dental Screening Dental Screen Date: 10/30/24 Did you have a dental visit in the last 12 months?: Yes Did you have a dental problem in the last 6 months where you did not have access to dental care?: No Was dental information given to patient?: Patient has dentist HPI HPI Comments History of Present Illness Details 29 y/o M with scoliosis and multiple sports injuries, elevated LFTs, elevated LDL , family hx skin ca Surgical history pilonidal cyst 2012 Hospitalizations: choked on peanut age 3 Family hx: Hx of skin cancer and heart disease Social: Works for the [employer], ,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 Exercise change with + relief. Here today for CPE URI 3 weeks ago. Cont w/ sinus congestion. Sudafed and benadryl. No big relief. + facial pressure. Flight on Wednesday. No GI sx cont reduced etoh HLD - + lifestyle changes Review of Systems - Ear, Nose, Throat: Reports facial pressure; denies fever, chills, pain, or headache. - Neurological: Denies changes in vision. - Gastrointestinal: Denies stomach issues or digestive problems. - Dermatological: No notable skin changes, maintains awareness due to family history of skin cancer. - Musculoskeletal: History of hip pain secondary to sports injuries; less concern noted currently. Physical Exam General: Well developed, well nourished, in no acute distress. Appears stated age. Head: Normocephalic, atraumatic. Eyes: Pupils are equal, round and reactive to light and accommodation. Conjunctivae are clear. Vision grossly normal. Ears: TMs clear AU, EACS WNL Nose: Thick white d/c turbinates pale & edematous, + congestion, bilat frontal Sinus tenderness noted on palpation. Pharynx: + PND otherwise WNL Neck: Supple, no adenopathy or thyromegaly. Lungs: Clear to auscultation bilaterally. No rales, rhonchi or wheeze noted. Good air flow in all pop. Heart: Regular rate and rhythm. No murmurs, click, rubs or gallops are noted. Abdomen: Bowel sounds present in all quadrants. The abdomen is soft, nontender, with no masses or organomegaly noted. No hernias are noted. : Deferred. Reviewed LAUREN & recommendations Pulses: Peripheral pulses are equal and palpable bilaterally. Extremities: No clubbing, cyanosis nor edema is noted. Neurologic: Gait and station normal. Cranial Nerves 2-12 intact. Motor strength grossly symmetrical and intact. No sensory loss. Balance normal. Skin: No rashes, ulcers, or lesions noted. Turgor is good. Skin color is good. Hair and nails are without abnormalities. Psych: Normal eye contact, affect and mood appropriate, and normal interactions. Patient is alert and appropriate to context. Results - Labs: Follow-up labs for liver enzymes and cholesterol levels are indicated to be performed today. Discussion Notes I addressed the patient's symptoms of sinus congestion, suggesting sinusitis, for which I recommended Augmentin as an antibiotic treatment regimen. We discussed the importance of taking this medication with food to avoid gastrointestinal issues, specifically diarrhea. Afrin nasal spray was suggested as a short-term remedy for his upcoming flight to prevent potential ear congestion due to pressure changes. For his ongoing health issues, including NAFLD and hyperlipidemia, we planned further evaluation with liver enzyme and cholesterol testing. Any findings will be discussed through the patient portal. He was advised to routinely monitor his skin due to family history and maintain ophthalmologic and dental care as per schedule. We reviewed the possible need to adapt his orthopedics' evaluations with the new insurance policy for a previously denied hip MRI. Immunizations and attention to preventative care were part of health maintenance recommendations. A&P: 1. Sinusitis:Augmentin was prescribed, with instructions to take it twice a day for a week with food. Afrin nasal spray was advised for use when flying to prevent sinus pressure issues. 2. Nonalcoholic Fatty Liver Disease (NAFLD): We will monitor liver enzyme levels to evaluate the status of NAFLD. Lifestyle modifications are being maintained, and further adjustments will be guided by lab results. 3. Hyperlipidemia: The patient will undergo cholesterol testing to assess hyperlipidemia status. Lifestyle interventions will continue depending on results. 4. History of Elevated Liver Function Tests: Regular reassessment of liver function tests is planned to track any changes over time. 5. History of Multiple Sports Injuries: The patient will update insurance information with orthopedics for possible MRI approval if hip issues recur. Patient Instructions: - Take Augmentin as prescribed with food to avoid stomach upset. - Use Afrin nasal spray before flight on Wednesday to reduce sinus pressure. - Schedule follow-up lab work today for liver enzymes and cholesterol. - Continue physical activity modifications to avoid hip strain. - Observe regular sunscreen use to protect skin. - Keep updated documentation for any job-related changes. - RTO 1 year CPE, sooner prn Consent: Patient was informed and verbally consented to the use of an ambient scribe for clinic note documentation during this visit. [facility] Surgical History History of removal of cyst Family History Father Hypertension Maternal Grandfather Hypertension Paternal Grandfather Hypertension Social History Household Members: Family Housing: House Are you a primary medicare nurse to a significant other at home: No Do you presently have visiting nurse or other home services: No Alcohol intake: current Comment: Beer once a week Patient Tobacco Use Status: Never used Tobacco e-Cigarette/Vaping Use: Never Used service: No Current occupational status: other Sexual orientation: Unable to collect Gender identity: Unable to collect Cognitive needs: No Hearing needs: No Vision needs: No Questionnaire PHQ-9 Over the last 2 weeks, how often have you been bothered by any of the following problems? 1. Little interest or pleasure in doing things: not at all 2. Feeling down, depressed, or hopeless: not at all 3. Trouble falling or staying asleep, or sleeping too much: several days 4. Feeling tired or having little energy: several days 5. Poor appetite or overeating: not at all 6. Feeling bad about yourself - or that you are a failure or have let yourself or your family down: not at all 7. Trouble concentrating on things, such as reading the newspaper or watching television: not at all 8. Moving or speaking so slowly that other people could have noticed. Or the opposite - being so fidgety or restless that you have been moving around a lot more than usual: not at all 9. Thoughts that you would be better off or of hurting yourself in some way: not at all Total score: 2 Depression Screening Interpretation: Negative Depression Screening Done: Yes 96241 - PHQ-9 Billing: Yes Source: Developed by Drs. Ant Salvador, Savana Yoo, Dmitry Pelletier and colleagues, with an educational elvin from [employer]. Thrive Questionnaire Date Thrive assessed: 10/30/24 I am a: Patient What is your living situation today?: I have a steady place to live Within the past 12 months, did the food you bought not last and you didn't have the money to get more?: Never true Within the past 12 months, did you worry whether your food would run out before you got money to buy more?: Never true Do you have trouble paying for medicines?: No Do you have trouble getting transportation to medical appointments?: No Do you have trouble paying your heating and electricity bill?: No Do you have trouble taking care of your child, family member or friend?: No Do you have trouble with day-to-day activities such as bathing, preparing meals, shopping, managing finances, etc.?: No Are you currently unemployed and looking for a job?: No Are you interested in more education?: No Please select the resources that you would like help with: None Currently or been in a relationship where the following occur: I choose not to answer THRIVE Score: 0 AUDIT C Alcohol Use Questionnaire (AUDIT-C) 1. How often do you have a drink containing alcohol?: Monthly or less 2. How many drinks containing alcohol do you have on a typical day when you are drinking?: 1 or 2 3. How often do you have six or more drinks on one occasion?: Never Total Score: 1 Score Reviewed/Action Taken: Yes KAREY-7 AMB Questionnaire KAREY-7 Date KAREY - 7 assessed: 10/30/24 Feeling nervous, anxious, or on edge: 0 = Not at all Not being able to stop or control worryin = Not at all Worrying too much about different things: 0 = Not at all Trouble relaxin = Not at all Being so restless that it is hard to sit still: 0 = Not at all Becoming easily annoyed or irritable: 0 = Not at all Feeling afraid as if something awful might happen: 0 = Not at all Total KAREY-7 score (0-4 normal; 5-9 mild; 10-14 moderate; 15-21 severe): 0 Source: Developed by Drs. Ant Salvador, Savana Yoo, Dmitry Pelletier and colleagues, with an educational elvin from [employer]. KAREY-7 Assessment Billing KAREY-7 Assessment Tool: KAREY-7 Assessment 64633 Physical exam (Primary Care) Vital Signs: Last Vital Signs Temp 97.2 F 10/30/24 08:06 Pulse 82 10/30/24 08:06 Resp 13 10/30/24 08:06 BP 132/78 10/30/24 08:06 Pulse Ox 94 10/30/24 08:06 Oxygen Delivery Method Room Air 10/30/24 08:06 BMI result Body Mass Index 25.0 Tobacco/Smoking Status: Tobacco use Status Tobacco use date assessed 10/30/24 10/30/24 08:05 Patient Tobacco Use Status Never used Tobacco 10/30/24 08:05 e-Cigarette/Vaping Use Never Used 10/30/24 08:05 PHQ-9: PHQ-9 Score PHQ-9: Total score 2 10/30/24 08:44 Depression Screening Interpretation: Negative Thrive Assessment: Date of Thrive Assessment Date Thrive assessed 10/30/24 10/30/24 08:05 Currently or been in a relationship where the following occur: I choose not to answer Office Procedures Flu Questionnaire Does the patient have a severe egg allergy?: No Does the patient have severe life threatening allergies?: No Does the patient have a fever or illness today?: No Has the patient ever had Guillain-Kent Syndrome?: No Has the patient ever had any past reaction to a flu shot?: No Immunizations Fluarix Triv 5745-0670 (PF) 45 mcg (15 mcg x 3)/0.5 mL IM syringe Performing Provider: RAUL Al Performing Location: [facility] Administered by: Foreign Koroma RN on 10/30/24 08:44 Dose Route Admin Location Dispensed Lot Number Expiration Date [place] [employer] 0.5 mL IM Left Deltoid 0.5 mL [id number] 02/05/25 18532-080-03 [employer] VIS Given Date VIS Provided VIS Publication Date 10/30/24 Single Vaccine 21 Eligibility Eligibility Date Funding Source Not VFC Eligible 10/30/24 Private Boostrix Tdap 2.5 Lf unit-8 mcg-5 Lf/0.5 mL intramuscular syringe Performing Provider: RAUL Al Performing Location: [facility] Administered by: Foreign Koroma RN on 10/30/24 08:44 Dose Route Admin Location Dispensed Lot Number Expiration Date [facility] Winter [employer] Manager 0.5 mL IM Left Deltoid 0.5 mL [id number] 06/05/25 49466-106-86 [employer] VIS Given Date VIS Provided VIS Publication Date 10/30/24 Single Vaccine 21 Eligibility Eligibility Date Funding Source Not VFC Eligible 10/30/24 Private Coding Level of Care Code Est Pt Prev Care 18-39y([id number]) Diagnoses Routine physicl lab exam Z00.00 NAFLD (nonalcoholic fatty liver disease) K76.0 Elevated low density lipoprotein (LDL) cholesterol level E78.00 Elevated LFTs R79.89 Family history of skin cancer Z80.8 Acute non-recurrent frontal sinusitis J01.10 Recurrence: non-recurrent Sinusitis location: frontal Additional Codes KAREY-7 Assessment Billing - KAREY-7 Assessment Tool: KAREY-7 Assessment [id number] ([id number]) PHQ-9 - 84792 - PHQ-9 Billing: Yes ([id number]) Assessment & Plan Assessment & Plan (1) Routine physicl lab exam: Code(s): Z00.00 - Encounter for general adult medical examination without abnormal findings Category: Medical (2) NAFLD (nonalcoholic fatty liver disease): Code(s): K76.0 - Fatty (change of) liver, not elsewhere classified Category: Medical (3) Elevated low density lipoprotein (LDL) cholesterol level: Comment: 10/31/24 122 direct LDL Code(s): E78.00 - Pure hypercholesterolemia, unspecified Category: Medical (4) Elevated LFTs: Code(s): R79.89 - Other specified abnormal findings of blood chemistry Category: Medical (5) Family history of skin cancer: Code(s): Z80.8 - Family history of malignant neoplasm of other organs or systems Category: Medical (6) Sinusitis, acute: Code(s): J01.90 - Acute sinusitis, unspecified Qualifiers: Recurrence: non-recurrent Sinusitis location: frontal Qualified Code(s): J01.10 - Acute frontal sinusitis, unspecified Plan . Orders: Orders Liver Panel Today E78.00 - Pure hypercholesterolemia, unspecified, K76.0 - Fatty (change of) liver, not elsewhere classified, R79.89 - Other specified abnormal findings of blood chemistry TDaP Immunization Today Z23 - Encounter for immunization Influenza [id number] Immunization Today Z23 - Encounter for immunization Lipid Panel Today E78.00 - Pure hypercholesterolemia, unspecified, K76.0 - Fatty (change of) liver, not elsewhere classified, R79.89 - Other specified abnormal findings of blood chemistry Medications: New amoxicillin-pot clavulanate 875-125 mg 1 tab PO BID 14 tabs 0RF 7 days oxymetazoline 0.05% (Afrin (oxymetazoline)) 2 sprays intranasal Q12H PRN 15 mL 0RF nasal congestion 3 days Patient Instructions: Patient Instructions - Take Augmentin as prescribed with food to avoid stomach upset. - Use Afrin nasal spray before flight on Wednesday to reduce sinus pressure. - Schedule follow-up lab work today for liver enzymes and cholesterol. - Continue physical activity modifications to avoid hip strain. - Observe regular sunscreen use to protect skin. - Keep updated documentation for any job-related changes. What Is It? Sinuses are air-filled spaces behind the bones of the upper face: between the eyes and behind the forehead, nose and cheeks. The lining of the sinuses are made up of cells with tiny hairs on their surfaces called cilia. Other cells in the lining produce mucus. The mucus traps germs and pollutants and the cilia push the mucus out through narrow sinus openings into the nose. When the sinuses become inflamed or infected, the mucus thickens and clogs the openings to one or more sinuses. Fluid builds up inside the sinuses causing increased pressure. Also bacteria can become trapped, multiply and infect the lining. This is sinusitis. Prevention There are some measures you can take to decrease your risk of developing sinusitis. If you smoke cigarettes, you should quit. The smoke can irritate nasal passageways and increase the likelihood of infection. Nasal allergies can trigger sinus infections, too. By identifying the allergen (the substance causing the allergic reaction) and avoiding it, you can help prevent sinusitis. If you have congestion from a cold or allergies, the following may help to reduce the risk of developing sinusitis: Drink lots of water. This thins nasal secretions and keeps mucous membranes moist. Use steam to soothe nasal passages. Breathe deeply while standing in a hot shower, or inhale the vapor from a basin filled with hot water while holding a towel over your head. Avoid blowing your nose with great force, which can push bacteria into the sinuses. Some doctors advise periodic home nasal washings to clear secretions. This may help prevent, and also treat, sinus infections. Treatment Many sinus infections improve without treatment. However, several medications may speed recovery and reduce the chance that an infection will become chronic. Decongestants - Congestion often triggers sinus infections, and decongestants can open the sinuses and allow them to drain. Several are available: Pseudoephedrine (Sudafed) is available without prescription, alone or in combination with other medications in multi-symptom cold and sinus remedies. Pseudoephedrine can cause insomnia, racing pulse and jitteriness. Do not use if you have high blood pressure or a heart condition. Phenylephrine (such as Sudafed PE) is an alternative mynf-jre-qskbpor oral decongestant. If you take products containing oral phenylephrine, check with the pharmacist to be certain there is no interaction with other medications you take. Oxymetazoline (Livia Mcneil and others) and phenylephrine (Greg-Synephrine and others) are found in nasal sprays. They are effective and may be less likely to cause the side effects seen with pseudoephedrine. However, using a nasal decongestant for more than three days can cause worse symptoms when you stop the medication. This is called the rebound effect. Antihistamines - These medications help to relieve the symptoms of nasal allergies that lead to inflammation and infections. However, some doctors advise against using antihistamines during a sinus infection because they can cause excessive drying and slow the drainage process. Idtr-tzu-qzkrnzm antihistamines include diphenhydramine (Benadryl and others), chlorpheniramine (Chlor-Trimeton and others) and loratadine (Claritin). Fexofenadine (Jeanette) and cetrizine (Zyrtec) are available by prescription. Nasal steroids - Anti-inflammatory sprays such as mometasone (Nasonex) and fluticasone (Flonase), both available by prescription, reduce swelling of nasal membranes. Like antihistamines, nasal steroids can be most useful for those who have nasal allergies. Nasal steroids tend to produce less drying than antihistamines. Unlike nasal decongestants, nasal steroids can be used for prolonged periods. Saline nasal sprays - These salt-water sprays are safe to use and can provide some relief by adding moisture to the nasal passages, thinning mucus secretions and helping to flush out any bacteria that may be present. Pain relievers - Acetaminophen (Tylenol), ibuprofen (Advil, Motrin and others) or naproxen (Aleve) can be taken sinus pain. Antibiotics - Your doctor may prescribe an antibiotic if he or she suspects that a bacterial infection is causing your sinusitis. If you start taking an antibiotic, complete the entire course so that the infection is completely killed off. Not all cases of sinusitis require antibiotic treatment: Talk with your doctor about whether an antibiotic is right for you. Keep in mind that antibiotics can cause side effects, such as allergic reactions, rash and diarrhea. In addition, overusing antibiotics eventually leads to the spread of bacteria that no longer can be killed by the most commonly prescribed antibiotics. When To Call A Professional Contact a doctor if you experience facial pain along with a headache and fever, cold symptoms that last longer than seven to 10 days, or persistent green discharge from the nose. If your symptoms don't improve within a week of beginning treatment, call your doctor. Call sooner if symptoms are getting worse. If you have repeated bouts of acute sinusitis, you may have allergies or another treatable cause of sinus congestion. Ask your doctor for advice. Health screenings for men You should visit your health care provider regularly, even if you feel healthy. The purpose of these visits is to: Screen for medical issues Assess your risk for future medical problems Encourage a healthy lifestyle Update vaccinations and other preventive care services Help you get to know your provider in case of an illness Information Even if you feel fine, you should still see your provider for regular checkups. These visits can help you avoid problems in the future. For example, the only way to find out if you have high blood pressure is to have it checked regularly. High blood sugar and high cholesterol level also may not have any symptoms in the early stages. Simple blood tests can check for these conditions. There are specific times when you should see your provider or receive specific health screenings. The [place] Preventive Services Task Force publishes a list of recommended screenings. Below are screening guidelines for men ages 40 to 64. BLOOD PRESSURE SCREENING Have your blood pressure checked at least once every year. Watch for blood pressure screenings in your area. Ask your provider if you can stop in to have your blood pressure checked. Ask your provider if you need your blood pressure checked more often if: You have diabetes, heart disease, kidney problems, or are overweight or have certain other health conditions You have a first-degree relative with high blood pressure You are Black Your blood pressure top number is from 120 to 129 mm Hg, or the bottom number is from 70 to 79 mm Hg If the top number is 130 mm Hg or greater or the bottom number is 80 mm Hg or greater, this is considered stage 1 hypertension. Schedule an appointment with your provider to learn how you can lower your blood pressure. Effects of age on blood pressure CHOLESTEROL SCREENING Cholesterol screening should begin at age 35 for men with no known risk factors for coronary heart disease. Repeat cholesterol screening should take place: Every 5 years for men with normal cholesterol levels More often if changes occur in lifestyle (including weight gain and diet) More often if you have diabetes, heart disease, kidney problems, or certain other conditions COLORECTAL CANCER SCREENING If you are under age 45, talk to your provider about getting screened. You may need to be screened if you have a strong family history of colon cancer or polyps. Screening may also be considered if you have risk factors such as a history of inflammatory bowel disease or polyps. If you are age 45 to 75, you should be screened for colorectal cancer. There are several screening tests available: A stool-based fecal occult blood (gFOBT) or fecal immunochemical test (FIT) every year A stool sDNA test every 1 to 3 years Flexible sigmoidoscopy every 5 years or every 10 years with stool testing FIT done every year CT colonography (virtual colonoscopy) every 5 years Colonoscopy every 10 years You may need a colonoscopy more often if you have risk factors for colorectal cancer, such as: Ulcerative colitis A personal or family history of colorectal cancer A history of growths in your colon called adenomatous polyps DENTAL EXAM Go to the dentist once or twice every year for an exam and cleaning. Your dentist will evaluate if you have a need for more frequent visits. DIABETES SCREENING All adults who do not have risk factors for diabetes should be screened starting at age 35 and repeated every 3 years. If you have other risk factors for diabetes, such as a first degree relative with diabetes, overweight or obesity, high blood pressure, prediabetes, or a history of heart disease, you may be tested more often. If you are overweight and have other risk factors, such as high blood pressure and are planning to become , screening is recommended. EYE EXAM Have an eye exam every 2 to 4 years ages 40 to 54 and every 1 to 3 years ages 55 to 64. Your provider may recommend more frequent eye exams if you have vision problems or glaucoma risk. Have an eye exam that includes an examination of your retina (back of your eye) at least every year if you have diabetes. IMMUNIZATIONS Commonly needed vaccines include: Flu shot: get one every year COVID-19 vaccine: ask your provider what is best for you Tetanus-diphtheria and acellular pertussis (Tdap) vaccine: have as one of your tetanus-diphtheria vaccines if you did not receive it as an adolescent Tetanus-diphtheria: have a booster (or Tdap) every 10 years Varicella vaccine: receive 2 doses if you never had chickenpox or the varicella vaccine and were born in 1980 or after Hepatitis B vaccine: receive 2, 3, or 4 doses, depending on your exact circumstances, if you did not receive these as a child or adolescent, until age 59 Shingles (herpes zoster) vaccine: at or after age 50 Ask your provider if you should receive other immunizations, especially if you have certain medical conditions, such as diabetes or are at increased risk for some diseases such as pneumonia. INFECTIOUS DISEASE SCREENING Screening for hepatitis C: all adults ages 18 to 79 should get a one-time test for hepatitis C. Screening for human immunodeficiency virus (HIV): all people ages 15 to 65 should get a one-time test for HIV. Depending on your lifestyle and medical history, you may need to be screened for infections such as syphilis, chlamydia, and other infections. LUNG CANCER SCREENING You should have an annual screening for lung cancer with low-dose computed tomography (LDCT) if: You are age 50 to 80 years AND You have a 20 pack-year smoking history AND You currently smoke or have quit within the past 15 years OSTEOPOROSIS SCREENING If you are age 50 to 64 and have risk factors for osteoporosis, you should discuss screening with your provider. Risk factors can include long-term steroid use, low body weight, smoking, heavy alcohol use, having a fracture after age 50, or a family history of hip fracture or osteoporosis. Osteoporosis PHYSICAL EXAM All adults should visit their provider from time to time, even if they are healthy. The purpose of these visits is to: Screen for diseases Assess risk of future medical problems Encourage a healthy lifestyle Update vaccinations and other preventive care services Maintain a relationship with a provider in case of an illness Your height, weight, and body mass index (BMI) should be checked at every exam. During your exam, your provider may ask you about: Depression and anxiety Diet and exercise Alcohol and tobacco use Safety, such as use of seat belts and smoke detectors Your medicines and risk for interactions PROSTATE CANCER SCREENING If you're 55 through 69 years old, before having the test, talk to your provider about the pros and cons of having a PSA test. Ask about: Whether screening decreases your chance of dying from prostate cancer. Whether there is any harm from prostate cancer screening, such as side effects from testing or overtreatment of cancer when discovered. Whether you have a higher risk of prostate cancer than others. If you are age 55 or younger, screening is not generally recommended. You should talk with your provider about if you have a higher risk for prostate cancer. Risk factors include: Having a family history of prostate cancer (especially a brother or father) Being If you choose to be tested, the PSA blood test is repeated over time (yearly or less often), though the best frequency is not known. Prostate examinations are no longer routinely done on men with no symptoms. Prostate cancer SKIN EXAM Your provider may check your skin for signs of skin cancer, especially if you're at high risk. People at high risk include those who have had skin cancer before, have close relatives with skin cancer, or have a weakened immune system. TESTICULAR EXAM The [place] Preventive Services Task Force (USPSTF) now recommends against performing testicular self-exams. Doing testicular self-exams has been shown to have little to no benefit.
[2024-10-30 08:06] VITALS: BP 132/78; PULSE 82; RESP 13; TEMP 36.2; O2SAT 94; BMI 25.0
== END 2024-10-30 08:41 | disposition home or self-care (01) ==
LOC: HO.HMCFM 07:59
PROVIDERS: PCP Nurse Practitioner Family; Visit Provider Nurse Practitioner Family
DX: Z00.00 Encounter for general adult medical examination without abnormal findings (principal); K76.0 Fatty (change of) liver, not elsewhere classified; E78.00 Pure hypercholesterolemia, unspecified; R79.89 Other specified abnormal findings of blood chemistry; Z80.8 Family history of malignant neoplasm of other organs or systems; J01.10 Acute frontal sinusitis, unspecified; Z23 Encounter for immunization

== ENCOUNTER → 2024-10-30 07:59 | Outpatient (BNVA) | payer OTHER, SELFPAY | PROVIDERS: PCP Nurse Practitioner Family; Visit Provider Nurse Practitioner Family | DX: Z00.00 Encounter for general adult medical examination without abnormal findings (principal); Z23 Encounter for immunization; K76.0 Fatty (change of) liver, not elsewhere classified; E78.00 Pure hypercholesterolemia, unspecified; R79.89 Other specified abnormal findings of blood chemistry; J01.10 Acute frontal sinusitis, unspecified; Z80.8 Family history of malignant neoplasm of other organs or systems | CPT/HCPCS: 90471; 90472; 90656; 90715; 96127 ==

== ENCOUNTER 2024-10-30 08:47 | Outpatient (REF) | payer OTHER, SELFPAY ==
[2024-10-30 12:15] LABS: Alanine Aminotransferase 35 U/L (0-40); Albumin Level 4.3 g/dL (3.5-5.0); Alkaline Phosphatase 73 U/L (39-117); Aspartate Amino Transferase 31 U/L (5-37); Bilirubin Direct 0.1 mg/dL (0.0-0.5); Bilirubin Total 0.4 mg/dL (0.0-1.0); Cholesterol 172 mg/dL (<200); HDL Cholesterol 38 mg/dL (>40); LDL Cholesterol Calculated 114 mg/dL (<100); Total Protein 7.7 g/dL (6.5-8.0); Triglycerides 100 mg/dL (<150)
== END 2024-10-30 08:48 | disposition home or self-care (01) ==
LOC: HO.WFDLDS 08:47
PROVIDERS: Visit Provider Nurse Practitioner Family
DX: R79.89 Other specified abnormal findings of blood chemistry (principal); E78.00 Pure hypercholesterolemia, unspecified; K76.0 Fatty (change of) liver, not elsewhere classified
CPT/HCPCS: 36415; 80061; 80076